=== PATIENT | female | born 1995 | race Caucasian/White ===

== ENCOUNTER 2019-03-17 08:39 | Outpatient (CLI) | payer OTHER ==
--- NOTE | 2019-03-17 10:55 | MRI ---
MRI RIGHT FOOT WITHOUT CONTRAST: HISTORY: M25.81, sesamoid. COMPARISON: None. FINDINGS: Subacute stress-type fracture of the lateral hallux sesamoid with edema within the proximal and dista l fragments, mild. There is some sclerosis of the fracture line. Mild decreased T1 signal. There is mild edema within the medial head of the flexor hallucis brevis, suggesting a muscle strain. The sesamoid phalangeal ligaments are intact. No proximal retraction. The anterior sesamoid ligament is intact. The flexor hallucis longus is intact. Intermetatarsal bursitis in the great toe and second toe metatarsal heads. Mild intermetatarsal burs itis between the second and third metatarsal heads. Subtle focus susceptibility in the plantar soft tissues between the second and third proximal phalang es. IMPRESSION: 1. Lateral hallux sesamoiditis with a subacute fracture with sclerosis, likely stress-related. 2. Abnormal edema within the medial head of the flexor hallucis brevis, suggesting muscle strain. 3. Intermetatarsal bursitis between the first and second and second and third metatarsal heads. 4. Intact plantar plate. POS: CET
== END 2019-03-17 08:40 | disposition home or self-care (01) ==
LOC: SCSMRI 08:39
PROVIDERS: ATTEND Podiatrist Foot & Ankle Surgery
DX: M25.871 Other specified joint disorders, right ankle and foot (principal); S92.401D Displaced unspecified fracture of right great toe, subsequent encounter for fracture with routine healing; M71.9 Bursopathy, unspecified